=== PATIENT | female | born 1955 | race African-American/Black ===

== ENCOUNTER 2022-12-19 17:19 | Emergency (ER) | payer BC, SELFPAY ==
--- NOTE | 2022-12-19 17:15 | DI.CT_ITS ---
Exam(s) CT LOWER EXTREMITY LT WO EXAM: CT LOWER EXTREMITY LT WO CLINICAL HISTORY: fall, L chest, arm leg pain, screaming, no focalit. TECHNIQUE: Imaging Protocol: Axial computed tomography images with coronal and sagittal reformatted images were created and reviewed. CONTRAST MATERIAL: Intravenous: Omnipaque 350 Contrast volume:structured data in ml Contrast route:IV - COMPARISON: No exams were available for comparison FINDINGS: Bones: No evidence of fracture. No lytic or blastic bony lesion. Bones appear osteopenic. There it these a fight at the patella and calcaneus. Joints: Degenerative changes at the hip joint. Knee and ankle joints are unremarkable. Mild degener ative changes in the foot. Soft tissues: No evidence of hematoma. Calcified uterine fibroids noted. IMPRESSION: No evidence of posttraumatic abnormality. RADIATION DOSE DELIVERED: 764.99mGy.cm Total DLP DATA REPOSITORY: All CT scans at this facility are submitted to the National Radiology Data Registry (NRDR) Dose Index Registry (DIR) with the [employer] (A[employer]). RADIATION OPTIMIZATION: All CT scans at this facility use at least one of these dose optimization te chniques: automated exposure control; mA and/or kV adjustment per patient size (includes targeted exa ms where dose is matched to clinical indication); or iterative reconstruction.
--- NOTE | 2022-12-19 17:15 | DI.CT_ITS ---
Exam(s) CT HEAD CERVICAL SPINE WO EXAM: CT HEAD CERVICAL SPINE WO CLINICAL HISTORY: fall, head pain, loc, confused. TECHNIQUE: Imaging Protocol: Axial computed tomography images with coronal and sagittal reformatted images were created and reviewed COMPARISON: No exams were available for comparison FINDINGS: Head CT Ventricles and Extra axial spaces: Normal in size and morphology for the patient's age. Hemorrhage: None. Cerebral parenchyma: Area of encephalomalacia in the left occipital lobe consistent with old infarct. No acute infarct. Minimal white matter changes. Midline shift: None. Brainstem/Cerebellum: Normal. Calvarium: Normal. Visualized Paranasal sinuses/Mastoids: Clear. Incidental note is made of a partial empty sella. Cervical Spine CT BONES: Vertebral body heights are maintained. Alignment is normal. There is no evidence of acute frac ture. Degenerative disc changes and facet degenerative changes are seen . there is prominent calcification of the anterior lodged tuna ligament at the C2-3 level. SOFT TISSUES: No paraspinal hematoma. The airway appears intact. No pneumothorax is seen at the lung apices. 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 No acute abnormality. C-spine CT: Degenerative changes, no acute abnormality. RADIATION DOSE DELIVERED: 1,503.22mGy.cm Total DLP DATA REPOSITORY: All CT scans at this facility are submitted to the National Radiology Data Registry (NRDR) Dose Index Registry (DIR) with the [employer] ([employer]CR). RADIATION OPTIMIZATION: All CT scans at this facility use at least one of these dose optimization te chniques: automated exposure control; mA and/or kV adjustment per patient size (includes targeted exa ms where dose is matched to clinical indication); or iterative reconstruction.
--- NOTE | 2022-12-19 17:15 | DI.CT_ITS ---
Exam(s) CT CHEST/ABD/PEL WO EXAM: CT CHEST/ABD/PEL WO CLINICAL HISTORY: fall, L chest, arm leg pain, screaming, no focalit. TECHNIQUE: Imaging Protocol: Axial computed tomography images with coronal and sagittal reformatted images were created and reviewed CONTRAST MATERIAL: Noncontrast Oral: no COMPARISON: No exams were available for comparison FINDINGS: CHEST: Tracheobronchial tree: Patent where visualized. Mediastinum and Destini: No dominant adenopathy or fluid collection. Pulmonary parenchyma: No consolidation or dominant measurable mass. Pleura: No effusion or pneumothorax. Lymph nodes: Within normal limits. Aorta: Thoracic portion non-dilated. Minimal atherosclerotic changes. Heart: Normal size. No pericardial effusion. Bones: Unremarkable for age. No lytic or blastic lesions. No evidence of rib or spine fracture. ABDOMEN: Liver: Normal density. No measurable mass. Gallbladder and biliary tract: No radiodense calculus or dilation. Pancreas: Normal density, no abnormal calcifications or inflammatory process. Spleen: Normal. Kidneys: Normal size, contour and axis. No radiodense stones or obstructive uropathy. No masses seen. Adrenal glands: No masses seen. Aorta: Abdominal portion non-dilated. Lymph nodes: Within normal limits. Soft tissues: Unremarkable. PELVIS: Bladder: Distended, no gross wall thickening. Bowel: No obstruction or bowel wall thickening. Peritoneal cavity: No ascites, collection or mesenteric inflammatory response. Bones: Unremarkable for age.. Reproductive organs: Enlarged uterus with multiple fibroids are which are calcified. IMPRESSION: No acute abnormality in the chest abdomen or pelvis.. RADIATION DOSE DELIVERED: 1,102.96mGy.cm Total DLP DATA REPOSITORY: All CT scans at this facility are submitted to the National Radiology Data Registry (NRDR) Dose Index Registry (DIR) with the [employer] (ACR). RADIATION OPTIMIZATION: All CT scans at this facility use at least one of these dose optimization te chniques: automated exposure control; mA and/or kV adjustment per patient size (includes targeted exa ms where dose is matched to clinical indication); or iterative reconstruction.
[2022-12-19 17:23] VITALS: BP 184/86; PULSE 89; RESP 18; TEMP 36.6; O2SAT 100
--- NOTE | 2022-12-19 17:58 | W.ED.GENAD ---
Discharge Plan Disposition Patient Disposition: Home Condition: Good Discharge Details Chief Complaint: Trauma Clinical Impression: Fall, Arm pain, left, Left leg pain Primary Care Provider: Unknown,Unknown ED Provider: Jarrett Leone Home Meds and New Rx's Prescriptions: No Action Unable to Obtain Discharge Instructions Additional Instructions: At this time your work-up and imaging has returned normal after radiology review. No evidence of fracture or other acute abnormality. As we discussed you do have a history of an old stroke as noted on the imaging, please follow-up closely with your neurologist for reassessment. Please use ice as needed for pain. If you notice any worsening of your symptoms, or any new symptoms such as vomiting, diarrhea, fever, chills, shortness of breath, chest pain, numbness, weakness, or fainting , please return immediately to the emergency department for reevaluation. Please follow up with your primary care provider as soon as possible for reassessment and reevaluation. As always, it was a pleasure participating in your medical care today. 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 Patient states that she was walking with her significant other, tripped on the curb, fell forward and landed onto her left hand side. She did not have loss of consciousness, however EMS states that she was confused after the event. She complains of pain on her front head, left arm, chest, and leg. No other complaints at this time. No numbness or tingling, no vomiting or diarrhea, she is not on any blood thinners. Exam demonstrates a very unique examination. She demonstrates tenderness in the left upper and left lower extremity. However it is nonfocal and exquisite. I am not able to complete my exam secondary to screaming for every location I palpate including the tips of the fingers, the elbow, the forearm, humerus, amongst other areas. This is also the case between the knee and the hip as well on the left. The rest of the exam is otherwise unremarkable. Of note shortly after the initial assessment the patient was able to move both upper and lower extremities well without any evidence of significant difficulty. She showed no evidence of restricted range of motion or deficit. Secondary to the notably atypical aspect of her symptomatology and exam we will do a CT scan of all of the areas of concern. Patient does note an allergy to all adhesives, and refuses any Tegaderm or other components. 7:39 PM Patient refused all labs and IV. We discussed that this was not ideal for CT imaging, but she continues to refuse. Noncontrast study was performed because of this. CT scan results have returned, no evidence of acute process, fracture, or other significant acute abnormality. There is presence of an old stroke. I did discuss this with the patient and her significant other at bedside. We will send her back with her disc to [place]. She has no focal neurologic deficits to suggest acute stroke at this time. She does have neurology follow-up later this month. Patient is now able to move all extremities well, she shows no signs of significant trauma. She has a notable disposition change from when she was initially being assessed. I discussed the plan with the patient and she is comfortable. Both she and her are ready for discharge. I have extensively reviewed the treatment plan and discharge instructions with the patient and their family. I have addressed all patient concerns at this time. The patient and family was made aware of what symptoms to monitor for that would warrant a return to the emergency department. Discussed the plan with the patient and family, they demonstrate verbal understanding and agreement with our assessment and plan at this time. The documentation in this chart was dictated using [employer] dictation software. Please excuse any dictation errors. FINDINGS: Brain: There is no acute intracranial hemorrhage, mass effect or midline shift. There is no large acute territorial cerebral infarct. There is a region of encephalomalacia in the left occipital lobe, likely from remote infarct. There is a partial empty sella. Cerebral ventricles: No ventriculomegaly. Paranasal sinuses: Visualized sinuses are unremarkable. No fluid levels. Mastoid air cells: Visualized mastoid air cells are well aerated. Bones/joints: No acute fracture. Soft tissues: Unremarkable. IMPRESSION: 1. No acute intracranial hemorrhage, mass effect or midline shift. 2. Old left occipital lobe infarct noted FINDINGS: Bones/joints: No acute fracture. 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 Multilevel degenerative disc disease noted most prominent at C5-C6 with left neural foraminal narrowing. No significant spinal canal stenosis. Lungs: Lung apices are normal. Soft tissues: Unremarkable. IMPRESSION: No acute findings. Thank you for allowing us to participate in the care of your patient. Dictated and Authenticated by: Carine Alonso MD 12/19/2022 7:03 PM Eastern Time ([place]) FINDINGS: Lungs: Bilateral lungs are clear. No consolidation. Pleural spaces: No pleural effusion. No pneumothorax. Heart: Normal heart size. No pericardial effusion. No coronary artery atherosclerotic calcium. Lymph nodes: Unremarkable. No enlarged lymph nodes. Vasculature: Thoracic aorta is normal in configuration. Limited evaluation without contrast. Mild atherosclerotic calcium. Bones/joints: Clavicles, shoulder girdles, and ribs are intact. No fractures are evident. No dislocation. Thoracic spine with degenerative changes. No acute fracture or posttraumatic malalignment. Soft tissues: Chest wall soft tissues are unremarkable. No tamanna hematoma or contusion. No soft tissue emphysema. No foreign body. IMPRESSION: 1. No acute traumatic changes to the thorax. 2. Clear lungs and pleural space. 3. No skeletal disruption evident FINDINGS: Liver: The liver is normal in size, contour and attenuation. Gallbladder and bile ducts: Normal. No calcified stones. No ductal dilation. Pancreas: The pancreas is normal in contour and attenuation. Spleen: The spleen is normal in size, contour and attenuation. Adrenal glands: The adrenal glands are normal in size and contour bilaterally. Kidneys and ureters: The kidneys bilaterally are unremarkable. Normal attenutation. No hydronephrosis. No calculi. Stomach and bowel: Gastric morphology is unremarkable. No edema. No gastric outlet obstruction.Small bowel loops are normal in course and caliber. There is no mucosal edema or bowel wall thickening. No obstructive features.The colon contains formed fecal material. There is no bowel wall thickening. No inflammatory features. No obstruction. Appendix: A non inflamed retrocecal appendix is identified. Intraperitoneal space: No free fluid. No free air. Vasculature: Abdominal aorta and inferior vena cava are normal in configuration. Lymph nodes: Unremarkable. No enlarged lymph nodes. Urinary bladder: Urinary bladder is unremarkable in appearance. No wall thickening. No intravesicular calculi. No intravesicular gas. Reproductive: Uterus with multiple calcified degenerating fibroids. No adnexal mass or dominant cyst evident. Bones/joints: Degenerative lumbar spine changes. No acute traumatic disruption. Bony pelvis and hip joints are intact. Soft tissues: Unremarkable. IMPRESSION: 1. No acute traumatic changes. 2. Multi fibroid uterus with calcific degeneration. 3. No free fluid 4. Degenerative lumbar spine changes. Thank you for allowing us to participate in the care of your patient. Dictated and Authenticated by: Ambrose Trent MD 12/19/2022 7:09 PM Eastern Time ([place]) FINDINGS: Bones/joints: Left acetabulum is unremarkable. No fracture. Proximal femur common femoral shaft, and distal femur are unremarkable. Knee joint is intact. No joint effusion. Patella is unremarkable. Tibia and fibula are unremarkable in appearance. The skeletal structures of the foot are intact. Soft tissues: Soft tissues of the left lower extremity are unremarkable. No hematoma or tamanna contusion. No soft tissue gas or foreign body. Reproductive: Degenerative uterine fibroids are incidentally noted. IMPRESSION: Unremarkable CT of the left leg. No acute traumatic skeletal changes. Hip joint, knee joint, and ankle joint are intact. No acute soft tissue pathology. Thank you for allowing us to participate in the care of your patient HPI General Date/Time Provider Initiated Documentation: 12/19/22 17:26. 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 Patient states that she was walking with her significant other, tripped on the curb, fell forward and landed onto her left hand side. She did not have loss of consciousness, however EMS states that she was confused after the event. She complains of pain on her front head, left arm, chest, and leg. No other complaints at this time. No numbness or tingling, no vomiting or diarrhea, she is not on any blood thinners. Related Data Home Medications Medication Instructions Recorded Confirmed Unknown [Unable to Obtain] 12/19/22 12/19/22 General Stated Complaint: Trauma SUSIE: 3 Review of Systems All systems reviewed & are unremarkable except as noted in HPI and below PFSH All Active Problems (Updated 12/19/22 @ 19:44 by Jarrett Leone DO) Fall (Acute) Arm pain, left (Acute) Left leg pain (Acute) Social History Smoking risk assessment performed?: No Exam Narrative Exam Narrative: 1.Const: Well-nourished, Well-developed, appearing stated age 2.Eyes: Pupils are both mid range, and neither pinpoint nor dilated. They appear to be minimally reactive but this appears bilateral. no conjunctival injection, and symmetrical lids. 3.ENT: Atraumatic external nose and ears. Moist MM. Neck: Symmetric, trachea midline, No thyromegaly. There is no evidence of raccoon eyes, rosario sign, CSF rhinorrhea, mastoid tenderness, cranial crepitus, hemotympanum, exophthalmos, or hyphema. Patient demonstrates intact dentition with no signs of tooth avulsion or fracture, no signs of jaw deformity, no evidence of a LeFort's fracture, with an intact palate, nose and orbital region. There is no evidence of a nasal septal hematoma. No proptosis. Jaw closes symmetrically. Airway is clear. 4.CVS: Regular rate and rhythm, Normal s1 and s2. No murmurs, carotid bruits, rubs, or gallops. Radial pulses 2+ bilaterally and symmetric. Dorsalis pedis pulses 2+ bilaterally and symmetric. 2+ capillary refill. No evidence of distant heart sounds. No extremity edema. No evidence of gross hemorrhage. 5.RESP: Airway clear, no obstructions. No abrasions or ecchymosis. Chest movement symmetric with respirations. No chest wall tenderness. Trachea midline. No crepitus. No step offs. No paradoxical movements. Lungs are clear to auscultation bilaterally. No rales, rhonchi, wheezing or stridor. Breath sound symmetric. No Sucking chest wounds. No clinical evidence of significant chest trauma. 6.GI: Soft, nondistended, nontender. Bowel tones normoactive. No masses or organomegaly. No ecchymosis or abrasions. No periumbilical ecchymosis or seatbelt sign. No flank or CVA tenderness. No clinical signs of significant trauma. Genital Exam: Intact and traumatically unremarkable genital and rectal exam with no significant bruising, blood, or deformity. No clinical evidence of significant abdominal trauma. 7.MSK: No gross deformities or discolorations or lesions. Vascular exam demonstrates brisk capillary refill and intact pulses in all extremities. Pelvic exam demonstrates a stable pelvis, nontender to lateral compression and palpation of symphysis pubis. Patient demonstrates no tenderness for the right upper or right lower extremity. Left upper extremity demonstrates nonfocal exquisite tenderness on every point of contact and palpation for the entire left upper extremity. This ranges from the shoulder, to the mid humerus, to the elbow, to each individual fingertip. There is no focal deformity noted though. No abrasions. However in spite of this she does appear to be able to move the left upper extremity well. Left lower extremity demonstrates nonfocal tenderness similar to the upper extremity from the hip down to the knee. Patient is unwilling to allow complete exam of the knee, and left upper extremity secondary to intolerance to any palpation. Patient demonstrates midline tenderness over C6 and C7. No other spinal tenderness. Exam limited secondary to patient's challenging components with exam. 8.Skin: Warm, Dry. No rashes or lesions. 9.Neuro: educational technology coordinator II-XII grossly intact. Sensation grossly intact, no focal neurologic deficits. 10.Psych: (AAO) x3. Notably elevated level of excitement. Patient does not know who the president is, but she states that she does not pay attention to politics. She does not know the year, and states that that is not important to her. However she is able to identify other critical components of alertness and activity. She does know who her significant other is, she is able to list her multiple 30+ allergies, and she is able to recall the events of the day. Course Vital Signs Vital signs: Vital Signs Temperature 36.6 C 12/19/22 17:23 Pulse 89 12/19/22 17:23 Respiratory Rate 18 12/19/22 17:23 Blood Pressure 184/86 H 12/19/22 17:23 Pulse Oximetry 100 12/19/22 17:23 Temperature 36.6 C 12/19/22 17:23 Temperature Source Temporal Artery Scan 12/19/22 17:23 Pulse 89 12/19/22 17:23 Respiratory Rate 18 12/19/22 17:23 Blood Pressure 184/86 H 12/19/22 17:23 Blood Pressure Position Sitting 12/19/22 17:23 Pulse Oximetry 100 12/19/22 17:23 Oxygen Delivery Method Room Air 12/19/22 17:23 Oxygen Flow Rate 0 12/19/22 17:23
--- NOTE | 2022-12-19 18:48 | NUR.NOTE ---
Nursing Note:1814 - attempt IV, pt refuse after failed attempt, provider aware, pt to CT w/o IV per provider
--- NOTE | 2022-12-19 19:04 | DI.VRAD_ITS ---
PROCEDURE INFORMATION: Exam: CT Head Without Contrast Exam date and time: 12/19/2022 6:35 PM Age: 67 years old Clinical indication: Other: Fall, head pain, loc, confused TECHNIQUE: Imaging protocol: Computed tomography of the head without contrast. COMPARISON: No relevant prior studies available. FINDINGS: Brain: There is no acute intracranial hemorrhage, mass effect or midline shift. There is no large acute territorial cerebral infarct. There is a region of encephalomalacia in the left occipital lobe, likely from remote infarct. There is a partial empty sella. Cerebral ventricles: No ventriculomegaly. Paranasal sinuses: Visualized sinuses are unremarkable. No fluid levels. Mastoid air cells: Visualized mastoid air cells are well aerated. Bones/joints: No acute fracture. Soft tissues: Unremarkable. IMPRESSION: 1. No acute intracranial hemorrhage, mass effect or midline shift. 2. Old left occipital lobe infarct noted. PROCEDURE INFORMATION: Exam: CT Cervical Spine Without Contrast Exam date and time: 12/19/2022 6:35 PM Age: 67 years old Clinical indication: Other: Fall, head pain, loc, confused TECHNIQUE: Imaging protocol: Computed tomography of the cervical spine without contrast. COMPARISON: No relevant prior studies available. FINDINGS: Bones/joints: No acute fracture. There is ossification of the anterior longitudinal ligament at the C2-C3 level. Multilevel degenerative disc disease noted most prominent at C5-C6 with left neural foraminal narrowing. No significant spinal canal stenosis. Lungs: Lung apices are normal. Soft tissues: Unremarkable. IMPRESSION: No acute findings. Dictated and Authenticated by: Carine Chavez MD. Ordering:IAIN Farias MD
--- NOTE | 2022-12-19 19:09 | DI.VRAD_ITS ---
PROCEDURE INFORMATION: Exam: CT Chest Without Contrast; Diagnostic Exam date and time: 12/19/2022 6:38 PM Age: 67 years old Clinical indication: Other: Fall, L chest, arm leg pain, screaming, no focalit TECHNIQUE: Imaging protocol: Diagnostic computed tomography of the chest without contrast. 3D rendering (Not supervised by radiologist): MIP and/or 3D reconstructed images were created by the technologist. COMPARISON: CT HEAD CERVICAL SPINE WO 12/19/2022 6:35 PM FINDINGS: Lungs: Bilateral lungs are clear. No consolidation. Pleural spaces: No pleural effusion. No pneumothorax. Heart: Normal heart size. No pericardial effusion. No coronary artery atherosclerotic calcium. Lymph nodes: Unremarkable. No enlarged lymph nodes. Vasculature: Thoracic aorta is normal in configuration. Limited evaluation without contrast. Mild atherosclerotic calcium. Bones/joints: Clavicles, shoulder girdles, and ribs are intact. No fractures are evident. No dislocation. Thoracic spine with degenerative changes. No acute fracture or posttraumatic malalignment. Soft tissues: Chest wall soft tissues are unremarkable. No tamanna hematoma or contusion. No soft tissue emphysema. No foreign body. IMPRESSION: 1. No acute traumatic changes to the thorax. 2. Clear lungs and pleural space. 3. No skeletal disruption evident. PROCEDURE INFORMATION: Exam: CT Abdomen And Pelvis Without Contrast Exam date and time: 12/19/2022 6:38 PM Age: 67 years old Clinical indication: Other: Fall, L chest, arm leg pain, screaming, no focalit TECHNIQUE: Imaging protocol: Computed tomography of the abdomen and pelvis without contrast. 3D rendering (Not supervised by radiologist): MIP and/or 3D reconstructed images were created by the technologist. COMPARISON: No relevant prior studies available. FINDINGS: Liver: The liver is normal in size, contour and attenuation. Gallbladder and bile ducts: Normal. No calcified stones. No ductal dilation. Pancreas: The pancreas is normal in contour and attenuation. Spleen: The spleen is normal in size, contour and attenuation. Adrenal glands: The adrenal glands are normal in size and contour bilaterally. Kidneys and ureters: The kidneys bilaterally are unremarkable. Normal attenutation. No hydronephrosis. No calculi. Stomach and bowel: Gastric morphology is unremarkable. No edema. No gastric outlet obstruction.Small bowel loops are normal in course and caliber. There is no mucosal edema or bowel wall thickening. No obstructive features.The colon contains formed fecal material. There is no bowel wall thickening. No inflammatory features. No obstruction. Appendix: A non inflamed retrocecal appendix is identified. Intraperitoneal space: No free fluid. No free air. Vasculature: Abdominal aorta and inferior vena cava are normal in configuration. Lymph nodes: Unremarkable. No enlarged lymph nodes. Urinary bladder: Urinary bladder is unremarkable in appearance. No wall thickening. No intravesicular calculi. No intravesicular gas. Reproductive: Uterus with multiple calcified degenerating fibroids. No adnexal mass or dominant cyst evident. Bones/joints: Degenerative lumbar spine changes. No acute traumatic disruption. Bony pelvis and hip joints are intact. Soft tissues: Unremarkable. IMPRESSION: 1. No acute traumatic changes. 2. Multi fibroid uterus with calcific degeneration. 3. No free fluid. 4. Degenerative lumbar spine changes. Dictated and Authenticated by: Ambrose Trent MD. Ordering:IAIN Farias MD
--- NOTE | 2022-12-19 19:18 | DI.VRAD_ITS ---
PROCEDURE INFORMATION: Exam: CT Left Lower Extremity Without Contrast Exam date and time: 12/19/2022 6:47 PM Age: 67 years old Clinical indication: Injury or trauma; Blunt trauma; Hip and thigh or upper leg and knee and lower leg and ankle and heel and foot; Right; Injury details: Fall, left leg pain, screaming, no focalit TECHNIQUE: Imaging protocol: CT of the Left lower extremity without contrast was performed. Radiation optimization: All CT scans at this facility use at least one of these dose optimization techniques: automated exposure control; mA and/or kV adjustment per patient size (includes targeted exams where dose is matched to clinical indication); or iterative reconstruction. COMPARISON: CT CHEST/ABD/PEL WO 12/19/2022 6:38 PM FINDINGS: Bones/joints: Left acetabulum is unremarkable. No fracture. Proximal femur common femoral shaft, and distal femur are unremarkable. Knee joint is intact. No joint effusion. Patella is unremarkable. Tibia and fibula are unremarkable in appearance. The skeletal structures of the foot are intact. Soft tissues: Soft tissues of the left lower extremity are unremarkable. No hematoma or tamanna contusion. No soft tissue gas or foreign body. Reproductive: Degenerative uterine fibroids are incidentally noted. IMPRESSION: Unremarkable CT of the left leg. No acute traumatic skeletal changes. Hip joint, knee joint, and ankle joint are intact. No acute soft tissue pathology. Dictated and Authenticated by: Ambrose Trent MD. Ordering:IAIN Farias MD
--- NOTE | 2022-12-19 19:49 | NUR.NOTE ---
@1910- Report from JUANJO Hernandez. Pt is A&Ox4, GCS 15, family at bedside. Pt states this collar is really painful and I can't stay in this position forever! RN educated pt about the importance of remaining supine and maintaining c-spine precautions until CT results are back. Pt refusing IV and lab draw at this time.
[2022-12-19] MEDS: diazePAM 5 MG TAB PO (20:07)
[2022-12-19 20:08] VITALS: BP 167/87; PULSE 78; RESP 18; TEMP 36.6; O2SAT 98
--- NOTE | 2022-12-19 20:19 | NUR.NOTE ---
@1930- C-collar cleared by .
--- NOTE | 2022-12-19 20:20 | NUR.NOTE ---
@195. Pt requesting to see MD for valium. She states I am allergic to everything and I need valium for my mental state and anxiety. Requested that MD to speak with pt prior to her discharge.
== END 2022-12-19 20:24 | disposition home or self-care (01) ==
PROVIDERS: Emergency Provider Student in an Organized Health Care Education/Training Program
DX: M79.602 Pain in left arm (principal); M79.605 Pain in left leg; R07.89 Other chest pain; S09.8XXA Other specified injuries of head, initial encounter; R41.0 Disorientation, unspecified; W01.0XXA Fall on same level from slipping, tripping and stumbling without subsequent striking against object, initial encounter
CPT/HCPCS: 71250; 80053; 83690; 99284; 70450; 72125; 73700; 74176; 85025